=== PATIENT | female | born 1950 | race Caucasian/White ===

== ENCOUNTER 2022-03-13 16:05 | Emergency (ER) | payer MEDICARE, MEDICAID ==
[~2022-03-13] VITALS: Ht 165.1 cm; Wt 86.4 kg
[2022-03-13 16:40] LABS: BASOPHILS % (AUTO) 0.6 % (0-1); EOSINOPHILS # (AUTO) 0.5 X10'3 (0-0.9); EOSINOPHILS % (AUTO) 5.9 % (0-6); HEMATOCRIT 36.5 % (35.0-45.0); LYMPHOCYTES % (AUTO) 25.8 % (21-51); MEAN CORPUSCULAR HEMOGLOBIN 28.2 PG (27.0-31.0); MEAN CORPUSCULAR VOLUME 85.6 FL (78-98); MEAN PLATELET VOLUME 7.4 FL (7.4-10.4); MONOCYTES # (AUTO) 0.6 X10'3 (0-0.9); MONOCYTES % (AUTO) 7.8 % (2-12); NEUTROPHILS # (AUTO) 4.7 X10'3 (1.8-7.7); NEUTROPHILS % (AUTO) 59.9 % (42-75); PLATELET COUNT 449 X10'3 (140-440); RED BLOOD COUNT 4.27 X10'6 (4.20-5.60); RED CELL DISTRIBUTION WIDTH 15.4 % (11.5-14.5); WHITE BLOOD COUNT 7.9 X10'3 (4.5-11.0)
[2022-03-13 16:50] LABS: APTT 25 SECONDS (22-32)
[2022-03-13 16:51] LABS: ALANINE AMINOTRANSFERASE 39 U/L (12-78); ALBUMIN 3.8 G/DL (3.4-5.0); ALBUMIN/GLOBULIN RATIO 1.2 (1.1-1.5); ALKALINE PHOSPHATASE 32 IU/L (46-116); ANION GAP 7 (8-16); ASPARTATE AMINO TRANSFERASE 30 U/L (10-37); BILIRUBIN,TOTAL 0.2 MG/DL (0.1-1.0); BLOOD UREA NITROGEN 22 MG/DL (7-18); BUN/CREATININE RATIO 20.8 (6.6-38.0); CALCIUM 9.2 MG/DL (8.5-10.1); CHLORIDE 106 MMOL/L (99-107); CREATININE 1.06 MG/DL (0.40-0.90); GLUCOSE 140 MG/DL (70-104); POTASSIUM 4.3 MMOL/L (3.5-5.1); SODIUM 140 MMOL/L (135-145); TOTAL CARBON DIOXIDE 27.1 MMOL/L (24-32); TOTAL PROTEIN 6.9 G/DL (6.4-8.2); eGFR 51 ML/MIN
[2022-03-13 19:47] VITALS: BP 202/90
[2022-03-13] MEDS ORDERED: aspirin 81mg tab.chew PO ONE (19:55)
[2022-03-13] MEDS: carVEDilol 12.5mg tablet PO SCH ×2 (20:23→20:25)
== END 2022-03-13 20:34 | disposition home or self-care (01) ==
LOC: ER 16:06
DX: I10 Essential (primary) hypertension (principal); R20.0 Anesthesia of skin; I11.9 Hypertensive heart disease without heart failure; K21.9 Gastro-esophageal reflux disease without esophagitis; E06.9 Thyroiditis, unspecified; E11.9 Type 2 diabetes mellitus without complications; Z88.2 Allergy status to sulfonamides
CPT/HCPCS: 36415; 70450; 71045; 80053; 82948; 85025; 85610; 85730; 93005; 99285

== ENCOUNTER 2022-03-17 09:14 | Day surgery (SDC) | payer MEDICARE, MEDICAID ==
[2022-03-16 12:52] LABS: BASOPHILS % (AUTO) 0.6 % (0-1); EOSINOPHILS # (AUTO) 0.5 X10'3 (0-0.9); HEMATOCRIT 37.3 % (35.0-45.0); HEMOGLOBIN 12.1 g/dl (12.0-16.0); LYMPHOCYTES # (AUTO) 1.8 X10'3 (1.1-4.8); LYMPHOCYTES % (AUTO) 23.4 % (21-51); MEAN CORPUSCULAR HEMOGLOBIN 27.4 PG (27.0-31.0); MEAN CORPUSCULAR HGB CONC 32.4 g/dL (33.0-36.5); MEAN CORPUSCULAR VOLUME 84.4 FL (78-98); MEAN PLATELET VOLUME 7.7 FL (7.4-10.4); MONOCYTES # (AUTO) 0.8 X10'3 (0-0.9); NEUTROPHILS # (AUTO) 4.6 X10'3 (1.8-7.7); PLATELET COUNT 461 X10'3 (140-440); RED BLOOD COUNT 4.42 X10'6 (4.20-5.60); RED CELL DISTRIBUTION WIDTH 15.6 % (11.5-14.5); WHITE BLOOD COUNT 7.6 X10'3 (4.5-11.0)
[2022-03-16 12:58] LABS: ALBUMIN 3.7 G/DL (3.4-5.0); ANION GAP 4 (8-16); BLOOD UREA NITROGEN 20 MG/DL (7-18); BUN/CREATININE RATIO 20.6 (6.6-38.0); CALCIUM 9.3 MG/DL (8.5-10.1); CHLORIDE 105 MMOL/L (99-107); CREATININE 0.97 MG/DL (0.40-0.90); GLUCOSE 147 MG/DL (70-104); POTASSIUM 4.8 MMOL/L (3.5-5.1); SODIUM 139 MMOL/L (135-145); eGFR 57 ML/MIN
[2022-03-16 13:02] LABS: APTT 24 SECONDS (22-32)
[2022-03-17] VITALS (9 sets, daily range): BP systolic 127–159; BP diastolic 57–81
[~2022-03-17] VITALS: Ht 162.6 cm; Wt 86.2 kg
[2022-03-17] MEDS ORDERED: normal saline 1,000 ML IV SCH (09:40)
[2022-03-17] MEDS ORDERED: diphenhydrAMINE 25mg capsule PO PRN (09:40)
[2022-03-17] MEDS ORDERED: LORazepam 0.5 MG tablet PO PRN (09:40)
[2022-03-17] MEDS ORDERED: METF-438 PO (09:48)
[2022-03-17] MEDS ORDERED: NITR0.4T51 (09:48)
[2022-03-17] MEDS ORDERED: CLOP75TA34 PO (09:48)
[2022-03-17] MEDS ORDERED: ATOR-2 PO (09:48)
[2022-03-17] MEDS ORDERED: INSU100I45 SUBCUT (09:48)
[2022-03-17] MEDS ORDERED: CARV25TA56 PO (09:48)
[2022-03-17] MEDS ORDERED: FENO160T PO (09:48)
[2022-03-17] MEDS ORDERED: ENAL-79 PO (09:48)
[2022-03-17] MEDS ORDERED: INSU300I3 SUBCUT (09:48)
[2022-03-17] MEDS ORDERED: LEVO100T9 PO (09:48)
[2022-03-17] MEDS ORDERED: Vitamin D3 (09:52)
[2022-03-17] MEDS ORDERED: OMEG1CAP2 (09:52)
[2022-03-17] MEDS ORDERED: ASPI-1071 PO (09:52)
[2022-03-17] MEDS ORDERED: OMEP40CA21 PO (09:52)
[2022-03-17] MEDS ORDERED: Magnesium PO (09:52)
[2022-03-17] MEDS ORDERED: verapamil 2.5 mg/ml inj IV ONE (10:22)
[2022-03-17] MEDS ORDERED: midazolam 1 mg/ML 2ml injection ONE (10:23)
[2022-03-17] MEDS ORDERED: nitroGLYCERIN-Tridil 50MG/D5W 250 ML IV ONE (10:23)
[2022-03-17] MEDS ORDERED: heparin 1,000unit/ml 10ml vial 10 ML ONE (10:23)
[2022-03-17] MEDS ORDERED: fentaNYL/PF 50MCG/1 ML 2ML syringe ONE (10:23)
[2022-03-17] MEDS ORDERED: iohexol 350MG/ML 100ml bottle IV ONE ×3 (10:24→12:18)
[2022-03-17] MEDS ORDERED: heparin 25,000 UNIT/250ml bag 0 ML IV ONE (12:03)
[2022-03-17] MEDS ORDERED: normal saline 1000ml 1,000 ML IV SCH (13:55)
== END 2022-03-17 18:00 | disposition home or self-care (01) ==
LOC: SSTAY O 09:14
PROVIDERS: ATTEND Internal Medicine Cardiovascular Disease
DX: R94.39 Abnormal result of other cardiovascular function study (principal); I25.10 Atherosclerotic heart disease of native coronary artery without angina pectoris; I25.82 Chronic total occlusion of coronary artery; I42.9 Cardiomyopathy, unspecified; I42.0 Dilated cardiomyopathy; E78.5 Hyperlipidemia, unspecified; E11.9 Type 2 diabetes mellitus without complications; Z98.890 Other specified postprocedural states; I25.2 Old myocardial infarction; E03.9 Hypothyroidism, unspecified; Z79.01 Long term (current) use of anticoagulants; Z79.899 Other long term (current) drug therapy; Z83.3 Family history of diabetes mellitus; Z82.49 Family history of ischemic heart disease and other diseases of the circulatory system; Z88.2 Allergy status to sulfonamides
CPT/HCPCS: 36415; 76937; 80048; 82948; 85025; 85610; 85730; 93005; 93458; 93567; 99152; 99153; C1751; C1769; C1894; J1644; J2250; J3010; J3490; J7030; Q0163; Q9967; A4620; A5120; A6258; A6402